=== PATIENT | female | born 2000 ===

== ENCOUNTER 2022-09-05 01:52 | Inpatient (IN) | payer BC ==
[~2022-09-05 01:52] MED LIST: Ampicillin 1 GM in Sodium Chloride 0.9% 50 ML IV ONE; Ampicillin 2 GM in Sodium Chloride 0.9% 100 ML IV ONE; Bupivacaine 0.5% 10 ML SDV INJECT ONE; Butorphanol 1 MG/ML SDV IVPUSH ONE; Dexmedetomidine 200 MCG/2 ML SDV IV ONE; Dextrose 5%-Lactated Ringers 1,000 ML IV ONE; Dinoprostone 10 MG Insert VAG ONE; Insulin Regular in 0.9 % NACL 100 ML IV ONE; Lactated Ringers 1,000 ML IV ONE; Lidocaine 2% 5 ML SDV INJECT ONE; Ondansetron 4 MG/2 ML SDV IVPUSH ONE; Oxytocin/0.9 % Sodium Chloride 30 UNIT/500 ML BAG IV ONE; Ropivacaine 0.2% PF 2 MG/ML 20 ML SDV EPIDUR ONE; Ropivacaine HCl/PF 400 MG in Premix Bag 1 BAG IV ONE
[2022-09-05] MEDS ORDERED: Ibuprofen 400 MG Tab ONE (03:30)
[2022-09-05] MEDS ORDERED: Ibuprofen 400 MG Tab PO ONE (16:20)
[2022-09-06] MEDS ORDERED: Ibuprofen 400 MG Tab PO ONE (08:40)
[2022-09-06] MEDS ORDERED: Ibuprofen 400 MG Tab ONE (21:58)
[2022-09-07] MEDS ORDERED: Ibuprofen 400 MG Tab ONE (17:49)
== END 2022-09-07 18:00 | disposition home or self-care (01) | DRG 560 ==
LOC: MW.ZCENSUS 01:52
PROVIDERS: ATTEND Obstetrics & Gynecology
PROC: 10E0XZZ Delivery of Products of Conception, External Approach (ICD-10-PCS; principal; 2022-09-05)
PROC: 0UQGXZZ Repair Vagina, External Approach (ICD-10-PCS; 2022-09-05)
PROC: 0U7C7ZZ Dilation of Cervix, Via Natural or Artificial Opening (ICD-10-PCS; 2022-09-05)
PROC: 3E033VJ Introduction of Other Hormone into Peripheral Vein, Percutaneous Approach (ICD-10-PCS; 2022-09-05)
PROC: 10907ZC Drainage of Amniotic Fluid, Therapeutic from Products of Conception, Via Natural or Artificial Opening (ICD-10-PCS; 2022-09-05)
PROC: 10H07YZ Insertion of Other Device into Products of Conception, Via Natural or Artificial Opening (ICD-10-PCS; 2022-09-05)
PROC: 3E0R3BZ Introduction of Anesthetic Agent into Spinal Canal, Percutaneous Approach (ICD-10-PCS; 2022-09-05)
DX: O41.03X0 Oligohydramnios, third trimester, not applicable or unspecified (principal); Z3A.37 37 weeks gestation of pregnancy; Z37.0 Single live birth; O76 Abnormality in fetal heart rate and rhythm complicating labor and delivery; O24.12 Pre-existing type 2 diabetes mellitus, in childbirth; O99.824 Streptococcus B carrier state complicating childbirth
CPT/HCPCS: 01967; 36415; 51702; 59025; 59200; 59409; 85014; 85018; A9270-GY; J0290; J0595; J1815; J2405; J2590; J2795; J3490; J7120; J7121